=== PATIENT | female | born 1970 | race Caucasian/White ===

== ENCOUNTER 2018-05-04 22:13 | Emergency (ER) | payer OTHER ==
--- NOTE | 2018-05-04 22:42 | RAD ---
PORTABLE UPRIGHT FRONTAL CHEST RADIOGRAPH; 05/04/18 COMPARISON: 08/08/17 HISTORY: Upper abdominal pain, intermittent. FINDINGS: Heart and mediastinal contours are unremarkable. IMPRESSION: No acute findings. POS: [facility]
[2018-05-04 22:46] LABS: #Basophils 0.1 thou/uL (0.0-0.2); #Lymphocytes 3.2 thou/uL (1.20-3.40); #Monocytes 0.9 thou/uL (0.11-0.59); #Neutrophils 4.7 thou/uL (1.40-6.50); %Basophils 0.8 % (0.0-1.0); %Eosinophils 9.9 % (0.0-10.0); %Lymphocytes 32.2 % (21.0-51.0); %Monocytes 9.1 % (0.0-10.0); %Neutrophils 48.1 % (42.0-75.0); Hemoglobin 13.6 g/dL (12.0-16.0); Mean Corpuscular HGB CONC 34.8 g/dL (32.0-36.0); Mean Corpuscular Hemoglobin 33.1 pg (27.0-31.0); Mean Corpuscular Volume 95.3 fL (78.0-98.0); Mean Platelet Volume 9.2 fL (7.4-10.4); Platelet Count 138 thou/uL (130-400); RBC Distribution Width 12.3 % (11.5-14.5); Red Blood Cell (RBC) Count 4.09 mill/uL (4.20-5.40); White Blood Cell (WBC) Count 9.8 thou/uL (4.8-10.8)
[2018-05-04 23:06] LABS: ALT (SGPT) 12 U/L (8-55); AST (SGOT) 14 U/L (5-34); Albumin 3.8 g/dL (3.5-5.0); Alkaline Phosphatase 93 U/L (40-150); Anion Gap 13 mmol/L (10-20); BUN (Urea Nitrogen) 18 mg/dL (7.0-18.7); Bilirubin, Total Less than 0.2 mg/dL (0.2-1.2); CK (CPK) 82 U/L (29-168); Calc. Creatinine Clearance 0 mL/min (70-130); Calcium 9.5 mg/dL (7.8-10.44); Carbon Dioxide 23 mmol/L (22-29); Chloride 105 mmol/L (98-107); Estimated GFR-MDRD 89; Globulin 2.6 g/dL (2.4-3.5); Glucose 83 mg/dL (70-105); Lipase 41 U/L (8-78); Potassium 4.3 mmol/L (3.5-5.1); Protein, Total 6.4 g/dL (6.0-8.3); Sodium 137 mmol/L (136-145)
[2018-05-04 23:10] LABS: Troponin I Less than 0.010 ng/mL (< 0.028)
[2018-05-04] MEDS ORDERED: Ondansetron HCl/PF 4 MG/2 ML Vial ONE (23:12)
[2018-05-04] MEDS ORDERED: Ketorolac Tromethamine 30 MG/ML VIAL ONE (23:12)
--- NOTE | 2018-05-04 23:13 | ULT ---
RIGHT UPPER QUADRANT ULTRASOUND 05/04/18 COMPARISON: None. HISTORY: Possible cholecystitis, right upper quadrant pain. TECHNIQUE: Multiplanar alfred scale sonographic imaging of the right upper quadrant provided. FINDINGS: Imaged pancreatic parenchyma is unremarkable. the body and tail are obscured by bowel gas. No focal l iver lesion or intrahepatic biliary dilatation. Gallbladder is partially contracted. No gallstones or gallbladder wall thickening. The office system analyst reports a negative Burnett's sign. The right kidney miguel ures 9 cm in craniocaudal dimension and demonstrates no stone, hydronephrosis or mass. CBD measures 5-6 mm, upper limits of normal. IMPRESSION: No sonographic evidence of cholecystitis or cholelithiasis. POS: [facility]
[2018-05-04] MEDS ORDERED: Fentanyl 100 MCG/2 ML VIAL ONE (23:46)
== END 2018-05-05 00:40 | disposition home or self-care (01) ==
LOC: ERS 22:13
DX: K80.50 Calculus of bile duct without cholangitis or cholecystitis without obstruction (principal); M10.9 Gout, unspecified; K21.9 Gastro-esophageal reflux disease without esophagitis; F90.9 Attention-deficit hyperactivity disorder, unspecified type; F17.210 Nicotine dependence, cigarettes, uncomplicated; Z79.899 Other long term (current) drug therapy
CPT/HCPCS: 71045; 76705; 80053; 82550; 82553; 83690; 84484; 85025; 93005; 96374; 96375; J1885; J2270; J2405; J3010

== ENCOUNTER 2019-11-23 21:23 | Emergency (ER) | payer OTHER ==
[2019-11-23] MEDS ORDERED: HYDROcodone/Acetaminophen 10/325 mg Tablet ONE ×2 (23:34→23:38)
[2019-11-23] MEDS ORDERED: Ondansetron ODT 4 MG TAB ONE ×2 (23:35→23:38)
[2019-11-23] MEDS ORDERED: Bupivacaine 0.25% 10 ML VIAL ONE (23:42)
[2019-11-24] MEDS ORDERED: Ibuprofen 800 MG TAB ONE (00:22)
== END 2019-11-24 00:26 | disposition home or self-care (01) ==
LOC: ERS 21:23
DX: K02.9 Dental caries, unspecified (principal); K21.9 Gastro-esophageal reflux disease without esophagitis; F90.9 Attention-deficit hyperactivity disorder, unspecified type; F17.210 Nicotine dependence, cigarettes, uncomplicated; M10.9 Gout, unspecified; Z71.6 Tobacco abuse counseling; Z79.899 Other long term (current) drug therapy
CPT/HCPCS: 64400; Q0162; S0020

== ENCOUNTER 2021-11-29 20:17 | Inpatient (IN) | payer OTHER ==
[2021-11-29 20:40] LABS: #Basophils 0.1 thou/uL (0.0-0.2); #Eosinphils 0.1 thou/uL (0.0-0.7); #Lymphocytes 2.9 thou/uL (1.20-3.40); #Monocytes 1.2 thou/uL (0.11-0.59); #Neutrophils 6.3 thou/uL (1.40-6.50); %Basophils 0.8 % (0.0-1.0); %Eosinophils 1.3 % (0.0-10.0); %Lymphocytes 27.7 % (21.0-51.0); %Monocytes 11.1 % (0.0-10.0); %Neutrophils 59.1 % (42.0-75.0); Hemoglobin 16.3 g/dL (12.0-16.0); Mean Corpuscular HGB CONC 34.2 g/dL (32.0-36.0); Mean Corpuscular Volume 96.4 fL (78.0-98.0); Mean Platelet Volume 8.4 fL (7.4-10.4); Platelet Count 199 thou/uL (130-400); RBC Distribution Width 12.3 % (11.5-14.5); Red Blood Cell (RBC) Count 4.93 mill/uL (4.20-5.40); White Blood Cell (WBC) Count 10.6 thou/uL (4.8-10.8)
[2021-11-29] MEDS ORDERED: Morphine 4 MG/ML VIAL ONE (20:51)
[2021-11-29] MEDS ORDERED: Ondansetron PF 4 MG/2 ML Vial ONE (20:51)
[2021-11-29 21:02] LABS: ALT (SGPT) 16 U/L (8-55); AST (SGOT) 14 U/L (5-34); Albumin 4.5 g/dL (3.5-5.0); Alkaline Phosphatase 130 U/L (40-110); Anion Gap 14 mmol/L (10-20); BUN (Urea Nitrogen) 14 mg/dL (9.8-20.1); Bilirubin, Total 0.2 mg/dL (0.2-1.2); Calc. Creatinine Clearance 0 mL/min (70-130); Calcium 9.7 mg/dL (7.8-10.44); Carbon Dioxide 25 mmol/L (22-29); Chloride 103 mmol/L (98-107); Globulin 3.1 g/dL (2.4-3.5); Glucose 82 mg/dL (70-105); Lipase 43 U/L (8-78); Potassium 4.1 mmol/L (3.5-5.1); Protein, Total 7.6 g/dL (6.0-8.3); Sodium 138 mmol/L (136-145)
[2021-11-30 00:01] LABS: Troponin I Less than 0.010 ng/mL (< 0.028)
[2021-11-30 00:29] VITALS: BMI 23.3
[2021-11-30] MEDS ORDERED: Nitroglycerin 0.4 MG TAB (25 Tab Bottle) SL PRN (01:05)
[2021-11-30] MEDS ORDERED: Aspirin 325 MG TAB PO SCH (01:15)
[2021-11-30] MEDS: Morphine 4 MG/ML VIAL SLOW IVP PRN ×3 (01:47→22:32)
[2021-11-30 01:58] LABS: SARS-CoV-2 NAA Rapid Test Not Detected (NotDetected)
[2021-11-30 02:59] LABS: #Eosinphils 0.1 thou/uL (0.0-0.7); #Lymphocytes 2.9 thou/uL (1.20-3.40); #Monocytes 1.1 thou/uL (0.11-0.59); %Eosinophils 1.5 % (0.0-10.0); %Lymphocytes 31.8 % (21.0-51.0); %Monocytes 11.7 % (0.0-10.0); %Neutrophils 54.9 % (42.0-75.0); Hemoglobin 13.5 g/dL (12.0-16.0); Mean Corpuscular HGB CONC 33.3 g/dL (32.0-36.0); Mean Corpuscular Hemoglobin 32.1 pg (27.0-31.0); Mean Corpuscular Volume 96.6 fL (78.0-98.0); Mean Platelet Volume 8.9 fL (7.4-10.4); Platelet Count 155 thou/uL (130-400); RBC Distribution Width 12.2 % (11.5-14.5); White Blood Cell (WBC) Count 9.1 thou/uL (4.8-10.8)
[2021-11-30 03:17] LABS: ALT (SGPT) 11 U/L (8-55); AST (SGOT) 12 U/L (5-34); Albumin 3.4 g/dL (3.5-5.0); Alkaline Phosphatase 94 U/L (40-110); Anion Gap 13 mmol/L (10-20); BUN (Urea Nitrogen) 10 mg/dL (9.8-20.1); Bilirubin, Direct 0.1 mg/dL (0.1-0.3); Bilirubin, Total 0.2 mg/dL (0.2-1.2); Calc. Creatinine Clearance 92 mL/min (70-130); Calcium 8.6 mg/dL (7.8-10.44); Carbon Dioxide 24 mmol/L (22-29); Chloride 107 mmol/L (98-107); Glucose 106 mg/dL (70-105); Potassium 3.7 mmol/L (3.5-5.1); Sodium 140 mmol/L (136-145)
[2021-11-30 03:22] LABS: Troponin I Less than 0.010 ng/mL (< 0.028)
[2021-11-30] MEDS: Sodium Chloride 0.9% 1,000 ML IV SCH ×3 (06:13→22:39)
[2021-11-30] MEDS: Acetaminophen 325 MG TAB PO PRN ×3 (06:19→21:19)
[2021-11-30] MEDS ORDERED: Sodium Chloride 0.9% 1,000 ML IV SCH ×2 (10:45→13:00)
[2021-11-30] MEDS ORDERED: Regadenoson 0.4 MG/5 ML SYRINGE ONE (11:33)
[2021-11-30] MEDS: Enoxaparin Sodium 40 MG/0.4 ML SYRINGE SC SCH (13:51)
[2021-11-30] MEDS: Gabapentin 100 MG CAP PO SCH ×2 (13:52→21:19)
[2021-11-30] MEDS: Ondansetron PF 4 MG/2 ML Vial IVP PRN (14:08)
[2021-11-30] MEDS ORDERED: Fioricet 325/50/40 mg Tablet PO SCH (14:15)
[2021-11-30 15:29] LABS: SARS-CoV-2 PCR by NAA Not Detected (NotDetected)
[2021-12-01 04:56] LABS: #Eosinphils 0.1 thou/uL (0.0-0.7); #Lymphocytes 2.4 thou/uL (1.20-3.40); #Monocytes 0.9 thou/uL (0.11-0.59); #Neutrophils 3.8 thou/uL (1.40-6.50); %Basophils 0.4 % (0.0-1.0); %Eosinophils 1.7 % (0.0-10.0); %Lymphocytes 33.1 % (21.0-51.0); %Monocytes 12.8 % (0.0-10.0); Hemoglobin 12.2 g/dL (12.0-16.0); Mean Corpuscular HGB CONC 32.7 g/dL (32.0-36.0); Mean Corpuscular Hemoglobin 32.2 pg (27.0-31.0); Mean Corpuscular Volume 98.4 fL (78.0-98.0); Mean Platelet Volume 8.8 fL (7.4-10.4); Platelet Count 152 thou/uL (130-400); RBC Distribution Width 12.3 % (11.5-14.5); White Blood Cell (WBC) Count 7.4 thou/uL (4.8-10.8)
[2021-12-01 05:25] LABS: Anion Gap 9 mmol/L (10-20); BUN (Urea Nitrogen) 11 mg/dL (9.8-20.1); Calc. Creatinine Clearance 91 mL/min (70-130); Calcium 8.6 mg/dL (7.8-10.44); Carbon Dioxide 23 mmol/L (22-29); Chloride 111 mmol/L (98-107); Glucose 88 mg/dL (70-105); Potassium 4.3 mmol/L (3.5-5.1); Sodium 139 mmol/L (136-145)
[2021-12-01 05:27] LABS: ALT (SGPT) 14 U/L (8-55); AST (SGOT) 14 U/L (5-34); Albumin 3.1 g/dL (3.5-5.0); Alkaline Phosphatase 82 U/L (40-110); Bilirubin, Direct 0.1 mg/dL (0.1-0.3); Bilirubin, Total Less than 0.2 mg/dL (0.2-1.2); Protein, Total 5.5 g/dL (6.0-8.3)
[2021-12-01] MEDS: Morphine 4 MG/ML VIAL SLOW IVP PRN ×2 (05:48→21:22)
[2021-12-01] MEDS ORDERED: Fioricet 325/50/40 mg Tablet PO SCH (09:00)
[2021-12-01] MEDS: Gabapentin 100 MG CAP PO SCH ×2 (10:14→21:24)
[2021-12-01] MEDS: Fioricet 325/50/40 mg Tablet PO SCH (10:15)
[2021-12-01] MEDS: Enoxaparin Sodium 40 MG/0.4 ML SYRINGE SC SCH (10:16)
[2021-12-01] MEDS ORDERED: Benzonatate 100 MG CAP PO PRN (16:51)
[2021-12-01] MEDS ORDERED: Nicotine 14 MG PATCH TD SCH (18:00)
[2021-12-01] MEDS ORDERED: Sodium Chloride 0.9% 10 ML ONE (21:16)
[2021-12-01] MEDS: Sodium Chloride 0.9% 1,000 ML IV SCH (21:28)
[2021-12-02] MEDS: Ondansetron PF 4 MG/2 ML Vial IVP PRN
[2021-12-02 05:16] LABS: #Basophils 0.1 thou/uL (0.0-0.2); #Eosinphils 0.2 thou/uL (0.0-0.7); #Lymphocytes 2.2 thou/uL (1.20-3.40); #Monocytes 1.1 thou/uL (0.11-0.59); %Basophils 0.6 % (0.0-1.0); %Eosinophils 2.2 % (0.0-10.0); %Lymphocytes 25.4 % (21.0-51.0); %Monocytes 12.6 % (0.0-10.0); %Neutrophils 59.3 % (42.0-75.0); Hemoglobin 13.2 g/dL (12.0-16.0); Mean Corpuscular HGB CONC 33.2 g/dL (32.0-36.0); Mean Corpuscular Hemoglobin 32.5 pg (27.0-31.0); Mean Corpuscular Volume 97.8 fL (78.0-98.0); Mean Platelet Volume 8.6 fL (7.4-10.4); Platelet Count 157 thou/uL (130-400); Red Blood Cell (RBC) Count 4.05 mill/uL (4.20-5.40); White Blood Cell (WBC) Count 8.5 thou/uL (4.8-10.8)
[2021-12-02 05:40] LABS: Anion Gap 13 mmol/L (10-20); BUN (Urea Nitrogen) 9 mg/dL (9.8-20.1); Calc. Creatinine Clearance 94 mL/min (70-130); Calcium 8.9 mg/dL (7.8-10.44); Carbon Dioxide 22 mmol/L (22-29); Chloride 109 mmol/L (98-107); Glucose 79 mg/dL (70-105); Potassium 3.9 mmol/L (3.5-5.1); Sodium 140 mmol/L (136-145)
[2021-12-02] MEDS: Fioricet 325/50/40 mg Tablet PO SCH (08:29)
[2021-12-02] MEDS: Gabapentin 100 MG CAP PO SCH (08:30)
[2021-12-02] MEDS: Enoxaparin Sodium 40 MG/0.4 ML SYRINGE SC SCH (08:30)
[2021-12-02] MEDS: Sodium Chloride 0.9% 1,000 ML IV SCH (13:38)
[2021-12-02 16:00] VITALS: BP 143/88; TEMP 98.6
[2021-12-03] MEDS ORDERED: FLU VACC QS2021-22(6MOS UP)/PF 60 MCG/0.5 ML SYRINGE IM ONE (09:00)
== END 2021-12-02 15:50 | disposition home or self-care (01) | DRG 446 ==
LOC: ERS 20:17 → 2NO 23:12 → OBSVTOIN 12-01 12:03
PROVIDERS: ADMIT Internal Medicine; ATTEND Internal Medicine
DX: K80.50 Calculus of bile duct without cholangitis or cholecystitis without obstruction (principal); Z20.822 Contact with and (suspected) exposure to COVID-19; Z23 Encounter for immunization; J44.9 Chronic obstructive pulmonary disease, unspecified; J06.9 Acute upper respiratory infection, unspecified; R10.11 Right upper quadrant pain; R07.89 Other chest pain; G40.909 Epilepsy, unspecified, not intractable, without status epilepticus; K21.9 Gastro-esophageal reflux disease without esophagitis; M10.9 Gout, unspecified; F90.9 Attention-deficit hyperactivity disorder, unspecified type; F17.210 Nicotine dependence, cigarettes, uncomplicated; K83.8 Other specified diseases of biliary tract; F41.9 Anxiety disorder, unspecified; J98.6 Disorders of diaphragm; R05.3 Chronic cough; I95.9 Hypotension, unspecified; Z86.74 Personal history of sudden cardiac arrest; Z88.8 Allergy status to other drugs, medicaments and biological substances; Z79.899 Other long term (current) drug therapy; Z90.710 Acquired absence of both cervix and uterus; Z98.51 Tubal ligation status
CPT/HCPCS: 36415; 71045; 71260; 76705; 78452; 80048; 80053; 80076; 83690; 84484; 85025; 93005; 93010; 93017; 96374; 96375; 96376; A9500; G0378; J2270; J2405; J2785; J7050; U0002; U0003; U0005

== ENCOUNTER 2023-12-27 15:20 | Emergency (ER) | payer OTHER ==
[2023-12-27 16:06] LABS: #Eosinphils 0.1 thou/uL (0.0-0.7); #Monocytes 0.9 thou/uL (0.11-0.59); #Neutrophils 5.2 thou/uL (1.40-6.50); %Basophils 0.3 % (0.0-1.0); %Eosinophils 0.9 % (0.0-10.0); %Lymphocytes 26.9 % (21.0-51.0); %Monocytes 10.6 % (0.0-10.0); %Neutrophils 60.8 % (42.0-75.0); Hematocrit 36.1 % (36.0-47.0); Hemoglobin 11.8 g/dL (12.0-16.0); Mean Corpuscular HGB CONC 32.7 g/dL (32.0-36.0); Mean Corpuscular Hemoglobin 32.1 pg (27.0-31.0); Mean Corpuscular Volume 98.1 fl (78.0-98.0); Mean Platelet Volume 10.8 fL (7.4-10.4); Platelet Count 200 10x3/uL (130-400); RBC Distribution Width 14.6 % (11.5-14.5); Red Blood Cell (RBC) Count 3.68 mill/uL (4.20-5.40); White Blood Cell (WBC) Count 8.6 10x3/uL (4.8-10.8)
[2023-12-27 16:23] LABS: ALT (SGPT) 11 U/L (8-55); AST (SGOT) 10 U/L (5-34); Albumin 3.6 g/dL (3.5-5.0); Alkaline Phosphatase 86 U/L (40-110); Anion Gap 16 mmol/L (10-20); BUN (Urea Nitrogen) 15 mg/dL (9.8-20.1); Bilirubin, Total 0.2 mg/dL (0.2-1.2); Calc. Creatinine Clearance 0 mL/min (70-130); Calcium 8.7 mg/dL (7.8-10.44); Carbon Dioxide 18 mmol/L (22-29); Chloride 108 mmol/L (98-107); Estimated GFR 93; Globulin 2.8 g/dL (2.4-3.5); Glucose 159 mg/dL (70-105); Lipase 37 U/L (8-78); Potassium 3.8 mmol/L (3.5-5.1); Protein, Total 6.4 g/dL (6.0-8.3); Sodium 138 mmol/L (136-145)
[2023-12-27 16:26] LABS: Troponin I Less than 0.010 ng/mL (< 0.028)
[2023-12-27] MEDS ORDERED: diphenhydrAMINE 50 MG/ML VIAL ONE (17:05)
[2023-12-27] MEDS ORDERED: Metoclopramide HCl 10 MG (2 mL) VIAL ONE (17:05)
[2023-12-27 18:25] LABS: Influenza A by NAA Not Detected (NotDetected); Influenza B by NAA Not Detected (NotDetected); SARS-CoV-2 NAA Rapid Test Not Detected (NotDetected)
[2023-12-27] MEDS ORDERED: Dexamethasone 10 MG/ML VIAL ONE (20:02)
[2023-12-27] MEDS ORDERED: Aspirin Chewable 81 MG TAB ONE (20:02)
== END 2023-12-27 21:28 | disposition home or self-care (01) ==
LOC: ERS 15:20
DX: J18.9 Pneumonia, unspecified organism (principal); K21.9 Gastro-esophageal reflux disease without esophagitis; R56.9 Unspecified convulsions; M10.9 Gout, unspecified; K64.9 Unspecified hemorrhoids; F17.210 Nicotine dependence, cigarettes, uncomplicated
CPT/HCPCS: 70450; 71045; 71275; 80053; 83690; 83880; 84484; 85025; 85379; 93005; 96374; 96375; J1100; J1200; J2765